=== PATIENT | male | born 1980 | race Caucasian/White ===

== ENCOUNTER → 2018-08-23 08:44 | Outpatient (CLI) | payer OTHER, SELFPAY ==
[2018-08-01 14:31] VITALS: BMI 29.9
[2018-08-23 09:54] LABS: ALB/GLOB Ratio 1.2 RATIO (0.9-2.4); AST(SGOT) 18 U/L (15-37); Alanine Aminotransfer ALT/SGPT 33 U/L (16-61); Albumin, Serum 3.6 g/dL (3.2-5.0); Alkaline Phosphatase 78 U/L (45-117); Anion Gap 5 (5-15); BUN 18 mg/dL (7-18); BUN/Creat Ratio 17.5 RATIO (10-20); Calcium,Total 8.5 mg/dL (8.5-10.1); Chloride 107 mmol/L (98-107); Cholesterol 236 mg/dL (200); Creatinine, Serum 1.03 mg/dL (0.70-1.30); EST Glomerular Filtration Rate 86 mL/min (>60); Est Glom Filt Rate - Afr Amer 104 mL/min (>60); Glucose 90 mg/dL (74-106); High Density Lipoprotein 51 mg/dL; Protein, Total 6.6 g/dL (6.4-8.2); Sodium Level 142 mmol/L (136-145); Triglycerides 137 mg/dL; Very Low Density Lipoprotein 27 mg/dL (5-40)
== END ==
PROVIDERS: Family Provider Family Medicine; PCP Family Medicine; Referring Provider Family Medicine; Visit Provider Family Medicine
DX: E78.5 Hyperlipidemia, unspecified (principal)
CPT/HCPCS: 36415; 80053; 80061

== ENCOUNTER → 2019-12-09 08:49 | Outpatient (CLI) | payer OTHER, SELFPAY ==
[2019-12-09 08:26] VITALS: BMI 29.9
[2019-12-09 12:46] LABS: Anion Gap 2 (5-15); BUN 15 mg/dL (7-18); BUN/Creat Ratio 16.2 RATIO (10-20); Calcium,Total 8.8 mg/dL (8.5-10.1); Chloride 104 mmol/L (98-107); Cholesterol 255 mg/dL (200); Creatinine, Serum 0.93 mg/dL (0.70-1.30); EST Glomerular Filtration Rate 97 mL/min (>60); Est Glom Filt Rate - Afr Amer 117 mL/min (>60); Glucose 86 mg/dL (74-106); High Density Lipoprotein 52 mg/dL; Potassium 3.9 mmol/L (3.5-5.1); Sodium Level 137 mmol/L (136-145); Triglycerides 109 mg/dL; Very Low Density Lipoprotein 22 mg/dL (5-40)
== END ==
PROVIDERS: PCP Family Medicine; Referring Provider Family Medicine; Visit Provider Family Medicine
DX: Z00.00 Encounter for general adult medical examination without abnormal findings (principal); Z80.42 Family history of malignant neoplasm of prostate
CPT/HCPCS: 36415; 80048; 80061; 84153

== ENCOUNTER → 2020-12-15 10:52 | Outpatient (CLI) | payer OTHER, SELFPAY ==
[2020-12-15 12:28] LABS: Anion Gap 5 (5-15); BUN 17 mg/dL (7-18); BUN/Creat Ratio 15.6 RATIO (10-20); Calcium,Total 9.2 mg/dL (8.5-10.1); Chloride 102 mmol/L (98-107); Cholesterol 290 mg/dL (200); Creatinine, Serum 1.09 mg/dL (0.70-1.30); EST Glomerular Filtration Rate 80 mL/min (>60); Est Glom Filt Rate - Afr Amer 97 mL/min (>60); Glucose 88 mg/dL (74-106); High Density Lipoprotein 57 mg/dL; Potassium 4.3 mmol/L (3.5-5.1); Sodium Level 139 mmol/L (136-145); Triglycerides 137 mg/dL; Very Low Density Lipoprotein 27 mg/dL (5-40)
== END ==
PROVIDERS: PCP Family Medicine; Referring Provider Family Medicine; Visit Provider Family Medicine
DX: Z00.00 Encounter for general adult medical examination without abnormal findings (principal)
CPT/HCPCS: 36415; 80048; 80061

== ENCOUNTER → 2021-02-18 09:12 | Outpatient (CLI) | payer OTHER, SELFPAY | PROVIDERS: PCP Family Medicine; Referring Provider Nurse Practitioner Family; Visit Provider Nurse Practitioner Family | DX: I49.9 Cardiac arrhythmia, unspecified (principal) | CPT/HCPCS: 93225; 93226 ==

== ENCOUNTER → 2021-09-09 | Outpatient (CLI) | payer OTHER, SELFPAY ==
[2021-09-09 10:08] LABS: Absolute Lymphocyte Count 1.31 X10^3/uL (0.83-4.51); Absolute Neutrophil Count 2.7 X10^3/uL (2.0-7.7); Basophil# 0.06 X10^3/uL; Basophil% 1.2 % (0-1); Eosinophil# 0.18 X10^3/uL; Eosinophils% 3.7 % (0-5); Hematocrit 44.8 % (40-54); Hemoglobin 15.7 g/dL (13.0-16.5); Lymphocyte # 1.31 X10^3/ul (0.83-4.51); Lymphocyte % 27.2 % (19-41); Mean Corpuscular Hgb 31.2 pg (27.0-32.0); Mean Corpuscular Volume 88.9 fL (80-94); Mean Platelet Vol. 8.5 fl (6.2-12.0); Monocyte# 0.55 X10^3/uL; Monocyte% 11.4 % (0-10); NRBC Flagged by Analyzer 0 % (0-5); Neutrophil # 2.69 X10^3/uL (2.7-7.7); Neutrophil % 56.1 % (47-70); Platelet Count 211 K/mm3 (150-450); RBC Distribution Width CV 12.4 % (11.6-14.6); RBC Distribution Width SD 39.9 fl (35.1-43.9); Red Blood Count 5.04 M/mm3 (4.6-6.2); White Blood Count 4.8 K/mm3 (4.4-11.0)
[2021-09-09 10:49] LABS: ALB/GLOB Ratio 1.3 RATIO (0.9-2.4); AST(SGOT) 22 U/L (15-37); Alanine Aminotransfer ALT/SGPT 41 U/L (16-61); Albumin, Serum 3.9 g/dL (3.2-5.0); Alkaline Phosphatase 72 U/L (45-117); Anion Gap 5 (5-15); BUN 15 mg/dL (7-18); BUN/Creat Ratio 14.9 RATIO (10-20); Calcium,Total 8.9 mg/dL (8.5-10.1); Chloride 106 mmol/L (98-107); Creatinine, Serum 1.01 mg/dL (0.70-1.30); EST Glomerular Filtration Rate 87 mL/min (>60); Est Glom Filt Rate - Afr Amer 105 mL/min (>60); Globulin 2.9 g/dL (2.2-4.2); Glucose 83 mg/dL (74-106); Protein, Total 6.8 g/dL (6.4-8.2); Sodium Level 140 mmol/L (136-145); Thyroid Stim Hormone (TSH) 3.91 uIU/mL (0.358-3.74)
[2021-09-10 09:02] LABS: Vitamin B12 322 pg/mL (211-911); Vitamin D,25 Hydroxy 28.8 ng/mL
[2021-09-12 08:07] LABS: Cholesterol 183 mg/dL (200); High Density Lipoprotein 51 mg/dL; Triglycerides 113 mg/dL; Very Low Density Lipoprotein 23 mg/dL (5-40)
== END | disposition home or self-care (01) ==
LOC: MTLAB 07:36
PROVIDERS: PCP Family Medicine; Referring Provider Family Medicine; Visit Provider Family Medicine
DX: Z00.00 Encounter for general adult medical examination without abnormal findings (principal); R53.83 Other fatigue
CPT/HCPCS: 36415; 80053; 80061; 82306; 82607; 84443; 85025

== ENCOUNTER → 2021-09-16 | Outpatient (CLI) | payer OTHER, SELFPAY ==
--- NOTE | 2021-09-16 11:25 | US_ITS ---
STUDY: SUPERFICIAL ULTRASOUND - LEFT FOREHEAD. REASON FOR EXAM: Male, 41 years old. GROWTH L FOREHEAD TECHNIQUE: A superficial ultrasound was performed with real-time and static esteves-scale imaging. COMPARISON: None. FINDINGS: The palpable abnormality corresponds to a 4 mm x 4 mm x 2 mm partially calcified nodule within the scalp overlying the left frontal bone. Posterior acoustical shadowing. This may represent an osteoma. US/Head/Neck Soft Tissue IMPRESSION: 4 mm x 4 mm x 2 mm partially calcified nodule deep in the scalp overlying the left frontal bone suggestive of an osteoma. Electronically Signed: Charlie Recio MD at 13:07 EDT ,
== END | disposition home or self-care (01) ==
LOC: US 11:24
PROVIDERS: PCP Family Medicine; Referring Provider Family Medicine; Visit Provider Family Medicine
DX: R22.0 Localized swelling, mass and lump, head (principal)
CPT/HCPCS: 76536

== ENCOUNTER → 2021-11-04 | Outpatient (CLI) | payer OTHER, SELFPAY ==
--- NOTE | 2021-11-04 13:47 | ART_ITS ---
Reason For Study: Brachial plexus disorder Procedure A bilateral upper extremity continuous wave Doppler with analog waveform analysis and segmental pressures. Thoracic outlet maneuvers performed bilaterally. Left Segmental Pressures Left brachial= 127mmHg. Left radial= 142mmHg. Left ulnar= 152mmHg. Left digit = 150 mmHg. The left radial waveforms are triphasic. The left ulnar waveforms are triphasic. Right Segmental Pressures Right brachial= 125mmHg. Right radial= 133mmHg. Right ulnar= 135mmHg. Right digit = 126 mmHg. The right radial waveforms are triphasic. The right ulnar waveforms are triphasic. Indices The right wrist-brachial index is 1.06. The right digital-brachial index is 0.99. The left wrist- brachial index is 1.20. The left digital-brachial index is 1.18. VL/Upper Extremity Arterial Study Interpretation Summary Right wrist-brachial index 1.06 at rest, normal. PVR/Doppler and digit waveform s normal at rest. Waveforms significantly diminished on right with maneuvers consistent with thor acic outlet syndrome Left wrist-brachial index 1.2 at rest, normal. PVR/Doppler and digit waveforms normal at rest. Waveforms significantly diminished on left with maneuvers consistent with thora cic outlet syndrome Ordering Physician: Walter Bell Referring Physician: Viraj Perdue Performed By: Christine Lloyd RVT
== END | disposition home or self-care (01) ==
PROVIDERS: PCP Family Medicine; Referring Provider Surgery Trauma Surgery; Visit Provider Surgery Trauma Surgery
DX: G54.0 Brachial plexus disorders (principal)
CPT/HCPCS: 93923

== ENCOUNTER 2021-12-27 11:00 | Outpatient (RCR) | payer OTHER, SELFPAY ==
--- NOTE | 2021-12-21 07:58 | HP.PTEVAL ---
Patient's Visit Information THALIA ANGEL is a 41 year old M referred to Physical Therapy by Dr. Sofia Quiros MD with a diagnosis of TOS. Date of Evaluation: 12/20/21 Physical Therapist: José Luis Dumont, PT, ATC - Visit Plan Frequency: 1-2x /Week Duration: 3 Weeks Plan: L UE stretching (scalenes and pec minor), DTR, 1st rib mobs, and HEP - Subjective Pt reports he has had L UE pain for the past 6-8 months, but notes the pain has worsened over the past 2-3 months. Pt reports the pain is located on the L UE and will radiate down his L UE. Pt notes he has difficulty with sleep at nights secondary to pain. Pt notes he has had some diagnostic tests at this time, but is awaiting to get his CT scan. Pt reports he is limited with certain activity like throwing the ball with his son occasion secondary to pain. Pt is R hand dominant. Pt notes when he throws the ball, he will notice the same pain on the R UE. Pt reports he has neck pain at this time. Pt reports his fingers feel ice cold at night. Pt reports his major goal is to avoid surgery at this time. 2/10 pain at rest, 7/10 pain at worst (when he sleeps at night). - Pain B UE Pain Intensity (Out of 10): 2 Pain Intensity Range: 7 - Objective Palpation: Mild muscle guarding in C/S. No obvious deformity. Neuro: B UE sensation is WNL to light touch. B bicipital reflex= 1/3. ROM: B UE's are WFL when compared bilaterally. MMT: B UE's 5/5 throughout. Repeated movements: RFIS and JAMES NE. Special tests: Pos Nick sign - Balance/Special Test Scores Oswestry Low Back Score: 5 - Goals Goal 1:: Decrease L UE pain x 50% to aid with sleep Goal Time Frame: 2-4 Weeks Goal 2:: Decrease L UE tingling and numbness x 50% to aid with IADL's Goal Time Frame: 2-4 Weeks Goal 3:: I with HEP Goal Time Frame: 2-4 Weeks - Rehabilitation Potential Physical Therapy Diagnosis: Pt has L UE pain and radicular sx's secondary to TOS Rehabilitation Potential: Fair - Anticipated Interventions Patient/Client Instruction: Educate patient on: Condition, Plan of Care For the Purpose of:: To improve self management Therapeutic Exercise to Include: Flexibilty training, Active ROM For the Purpose of:: To decrease pain, To improve muscle performance and motor function Manual Therapy Techniques to Include: Soft tissue mobilization For the Purpose of:: To decrease pain, To improve muscle performance and motor function Thank you for the opportunity to evaluate your patient. For Medicare and Medicare HMO plans, please review the plan of care and approve it. It will need to be FAXED BACK to us at [phone] for Medicare purposes. For Medicare only, by signing this I certify the plan of care. Please let me know if there are questions or concerns regarding this plan of care. Physician Signature: Date:
--- NOTE | 2022-06-15 17:27 | HP.PTDCNRP_ITS ---
THALIA ANGEL was seen in my office for initial evaluation on 12/20/21. The following Plan of Care was established for this patient: Initial Frequency: 1-2x /Week Initial Duration: 3 Weeks Patient/Client Instruction: Educate patient on: Condition, Plan of Care For the Purpose of:: To improve self management Therapeutic Exercise to Include: Flexibilty training, Active ROM For the Purpose of:: To decrease pain, To improve muscle performance and motor function Manual Therapy Techniques to Include: Soft tissue mobilization For the Purpose of:: To decrease pain, To improve muscle performance and motor function This patient was last seen in our office . Pertinent comments regarding their Physical therapy will appear below: Pt was treated for 2 PT visits for TOS through the date of 12/27/21. Pt has not returned through todays date and is discontinued at this time. At this point I will be discontinuing this patient from physical therapy. I w ould be happy to see this patient again in the future if found appropriate by the physician. Thank you! José Luis Dumont, PT, ATC Balance/Gait/Functional tests - Balance/Special Test Scores Oswestry Low Back Score: 5
== END 2021-12-27 19:00 | disposition home or self-care (01) ==
LOC: PT 11:00
PROVIDERS: PCP Family Medicine; Referring Provider Surgery Vascular Surgery; Visit Provider Surgery Vascular Surgery
DX: G54.0 Brachial plexus disorders (principal)
CPT/HCPCS: 97110; 97140; 97161

== ENCOUNTER → 2022-07-24 | Outpatient (CLI) | payer OTHER, SELFPAY ==
[2022-07-24 10:49] LABS: Absolute Lymphocyte Count 1.07 X10^3/uL (0.83-4.51); Absolute Neutrophil Count 2.8 X10^3/uL (2.0-7.7); Basophil# 0.03 X10^3/uL; Basophil% 0.6 % (0-1); Eosinophil# 0.16 X10^3/uL; Eosinophils% 3.5 % (0-5); Hematocrit 46.6 % (40-54); Hemoglobin 15.8 g/dL (13.0-16.5); Lymphocyte # 1.07 X10^3/ul (0.83-4.51); Lymphocyte % 23.2 % (19-41); Mean Corp Hgb Conc 33.9 g/dL (32-36); Mean Corpuscular Hgb 30.7 pg (27.0-32.0); Mean Corpuscular Volume 90.5 fL (80-94); Mean Platelet Vol. 8.8 fl (6.2-12.0); Monocyte# 0.51 X10^3/uL; NRBC Flagged by Analyzer 0 % (0-5); Neutrophil # 2.84 X10^3/uL (2.7-7.7); Neutrophil % 61.5 % (47-70); Platelet Count 216 K/mm3 (150-450); RBC Distribution Width CV 12.4 % (11.6-14.6); RBC Distribution Width SD 40.9 fl (35.1-43.9); Red Blood Count 5.15 M/mm3 (4.6-6.2); White Blood Count 4.6 K/mm3 (4.4-11.0)
[2022-07-24 11:09] LABS: ALB/GLOB Ratio 1.2 RATIO (0.9-2.4); AST(SGOT) 17 U/L (15-37); Alanine Aminotransfer ALT/SGPT 35 U/L (16-61); Albumin, Serum 3.9 g/dL (3.2-5.0); Alkaline Phosphatase 73 U/L (45-117); Anion Gap 4 (5-15); BUN 17 mg/dL (7-18); Chloride 106 mmol/L (98-107); Cholesterol 154 mg/dL (200); EST Glomerular Filtration Rate 87 mL/min (>60); Est Glom Filt Rate - Afr Amer 106 mL/min (>60); Globulin 3.2 g/dL (2.2-4.2); Glucose 95 mg/dL (74-106); High Density Lipoprotein 58 mg/dL; PSA,Total - Annual Screen 0.64 ng/mL (0.00-4.00); Potassium 3.9 mmol/L (3.5-5.1); Protein, Total 7.1 g/dL (6.4-8.2); Sodium Level 141 mmol/L (136-145); T4 Free Direct 1.08 ng/dL (0.76-1.46); Thyroid Stim Hormone (TSH) 2.94 uIU/mL (0.358-3.74); Triglycerides 53 mg/dL; Very Low Density Lipoprotein 11 mg/dL (5-40)
== END | disposition home or self-care (01) ==
LOC: LAB.FUTURE 08:33 → BFHLAB 08:34
PROVIDERS: PCP Family Medicine; Referring Provider Family Medicine; Visit Provider Family Medicine
DX: Z00.00 Encounter for general adult medical examination without abnormal findings (principal); R79.89 Other specified abnormal findings of blood chemistry; Z80.42 Family history of malignant neoplasm of prostate
CPT/HCPCS: 36415; 80053; 80061; 84153; 84439; 84443; 85025; G0103

== ENCOUNTER → 2023-05-01 | Outpatient (CLI) | payer OTHER, SELFPAY ==
[2023-05-01 12:21] LABS: Absolute Lymphocyte Count 1.06 X10^3/uL (0.83-4.51); Absolute Neutrophil Count 3.2 X10^3/uL (2.0-7.7); Basophil# 0.05 X10^3/uL; Eosinophil# 0.14 X10^3/uL; Eosinophils% 2.8 % (0-5); Hematocrit 46.7 % (40-54); Lymphocyte # 1.06 X10^3/ul (0.83-4.51); Lymphocyte % 21.4 % (19-41); Mean Corp Hgb Conc 34.3 g/dL (32-36); Mean Corpuscular Hgb 30.1 pg (27.0-32.0); Mean Corpuscular Volume 87.9 fL (80-94); Monocyte# 0.51 X10^3/uL; Monocyte% 10.3 % (0-10); NRBC Flagged by Analyzer 0 % (0-5); Neutrophil # 3.17 X10^3/uL (2.7-7.7); Neutrophil % 64.1 % (47-70); Platelet Count 207 K/mm3 (150-450); RBC Distribution Width SD 38.4 fl (35.1-43.9); Red Blood Count 5.31 M/mm3 (4.6-6.2)
[2023-05-01 12:58] LABS: ALB/GLOB Ratio 1.4 RATIO (0.9-2.4); AST(SGOT) 14 U/L (15-37); Alanine Aminotransfer ALT/SGPT 32 U/L (16-61); Albumin, Serum 4.1 g/dL (3.2-5.0); Alkaline Phosphatase 68 U/L (45-117); Anion Gap 4 (5-15); BUN 18 mg/dL (7-18); BUN/Creat Ratio 15.8 RATIO (10-20); Calcium,Total 9.1 mg/dL (8.5-10.1); Chloride 108 mmol/L (98-107); Cholesterol 156 mg/dL (200); Creatinine, Serum 1.14 mg/dL (0.70-1.30); EST Glomerular Filtration Rate 75 mL/min (>60); Est Glom Filt Rate - Afr Amer 91 mL/min (>60); Globulin 2.9 g/dL (2.2-4.2); Glucose 92 mg/dL (74-106); High Density Lipoprotein 50 mg/dL; PSA,Total - Annual Screen 0.66 ng/mL (0.00-4.00); Potassium 4.1 mmol/L (3.5-5.1); Sodium Level 140 mmol/L (136-145); Triglycerides 78 mg/dL; Very Low Density Lipoprotein 16 mg/dL (5-40)
== END | disposition home or self-care (01) ==
LOC: BFHLAB 08:43
PROVIDERS: PCP Family Medicine; Visit Provider Family Medicine
DX: Z00.00 Encounter for general adult medical examination without abnormal findings (principal); Z12.5 Encounter for screening for malignant neoplasm of prostate
CPT/HCPCS: 36415; 80053; 80061; 84153; 85025; G0103

== ENCOUNTER → 2023-07-19 | Outpatient (CLI) | payer OTHER, SELFPAY | END | disposition home or self-care (01) | PROVIDERS: PCP Family Medicine; Referring Provider Surgery; Visit Provider Surgery | DX: Z01.818 Encounter for other preprocedural examination (principal) | CPT/HCPCS: 87081 ==

== ENCOUNTER → 2023-08-02 | Outpatient (CLI) | payer OTHER, SELFPAY ==
--- NOTE | 2023-08-02 07:44 | CT_ITS ---
STUDY: CT ABDOMEN AND PELVIS WITH CONTRAST REASON FOR EXAM: Male, 43 years old. Hernia RADIATION DOSAGE (If Supplied By Facility): CTDIvol = ( 11.67 ) mGy, DLP = ( 759.35 ) mGycm TECHNIQUE: Oral and amp; IV Readi-CAT and amp; 100mL Isovue-300 was administered. Transaxial images were obtained from the dome of the diaphragm to the symphysis pubis. Multiplanar coronal and sagittal images were reformatted. The protocol utilizes one or more of the following dose reduction techniques: automated exposure control, adjustment of mA and/or kV according to patient size,and/or use of iterative reconstruction technique. COMPARISON: No relevant prior comparison study available FINDINGS: The visualized lung bases are unremarkable. The visualized portions of the heart are within normal limits. Normal liver. Normal gallbladder and extrahepatic biliary system. Normal spleen. Normal pancreas. Normal bilateral adrenal glands. Unremarkable kidneys. Right extrarenal pelvis. No evidence of hydronephrosis. Normal visualized stomach. Normal small intestine. Fecal retention. No evidence of acute diverticulitis. The appendix is visualized and appears normal. Normal abdominal aorta. No retroperitoneal adenopathy. Normal urinary bladder. No pelvic mass. There is a small left-sided inguinal hernia containing adipose tissue. Small umbilical hernia containing fat. The osseous structures are essentially unremarkable. Mild endplate spondylosis at T11-T12. CT/Abdomen/Pelvis WITH Contrast IMPRESSION: 1. Small left inguinal hernia containing fat and small umbilical hernia containing fat. 2. Otherwise unremarkable examination. Electronically Signed: Josué Santo MD at 9:15 EDT ,
== END | disposition home or self-care (01) ==
PROVIDERS: PCP Family Medicine; Referring Provider Surgery; Visit Provider Surgery
DX: R10.32 Left lower quadrant pain (principal); K42.9 Umbilical hernia without obstruction or gangrene
CPT/HCPCS: 74177; Q9967

== ENCOUNTER 2023-09-27 09:48 | Day surgery (SDC) | payer OTHER, SELFPAY ==
[2023-09-27] VITALS (8 sets, daily range): BP systolic 88–123; BP diastolic 57–88; PULSE 52–100; RESP 14–17; TEMP 36.3–37.8; O2SAT 92–98; BMI 25.8
--- NOTE | 2023-09-27 10:03 | PCM.PRE.AN2 ---
ASA Classification* ASA Classification ASA Classification: 2 Assessment & Plan Anesthesia* Anesthesia Assessment Anesthesia Assessment: Discussed sedation and/or anesthesia options, risks, benefits, and alternatives with patient/parents/legal guardian/POA. Questions invited. The patient/parents/legal guardian/POA seems to understand and agrees to proceed with anesthesia plan. Reviewed the physical assessment, medical history, allergy history and patient home medications list prior to surgery/procedure/anesthetic and documented any changes. Performed airway and anesthesia risk assessments. Anesthesia Type Anesthesia Type: General (given versed in AC mild anxiety about procedure) Anesthesia Focused Assessment* Airway Assessment Mouth opens: >3 cm Mallampati Score: II Focused Labs Anesthesia Preop lab: CBC WBC 5.0 K/mm3 (4.4-11.0) 05/01/23 08:44 RBC 5.31 M/mm3 (4.6-6.2) 05/01/23 08:44 Hgb 16.0 g/dL (13.0-16.5) 05/01/23 08:44 Hct 46.7 % (40-54) 05/01/23 08:44 Plt Count 207 K/mm3 (150-450) 05/01/23 08:44 CHEMISTRY Potassium 4.1 mmol/L (3.5-5.1) 05/01/23 08:44 Sodium 140 mmol/L (136-145) 05/01/23 08:44 BUN 18 mg/dL (7-18) 05/01/23 08:44 Creatinine 1.14 mg/dL (0.70-1.30) 05/01/23 08:44 Glucose 92 mg/dL (74-106) 05/01/23 08:44 TSH 2.94 uIU/mL (0.358-3.74) 07/24/22 08:35 COAG Pre-Assessment Diagnosis/Proposed Procedure Planned Operative Procedure(s): (L) Lap Robotic Left Inguinal Hernia w/mesh & umbilical hernia Anesthesia History 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 When Was Last Pacemaker Check QUESTION #4 FULL TEXT: You/Your Family Experience fever (hyperthermia) with Anesthesia Last Oral Intake Last Oral intake: Last Oral Intake NPO since Meds taken in AM with sips of water? Meds patient instructed to take am of surgery PONV PONV - drop board worker: PONV - drop board worker Female No 09/13/23 08:53 HX of Motion Sickness Yes 09/13/23 08:53 HX of N/V After Surgery No 09/13/23 08:53 Non-Smoker Yes 09/13/23 08:53 Duration of Surgery greater Yes 09/13/23 08:53 than 60 minutes Number of Risk Factors 3 09/13/23 08:53 PONV Score Moderate Risk 09/13/23 08:53 Height & Weight Height & Weight: Anesthesia: Height & Weight Height 5 ft 7 in 07/19/23 14:56 Respiratory Assessment Respiratory Assessment - drop board worker: Respiratory Tract Infection Hx - drop board worker Hx Respiratory Tract Infection No 09/13/23 08:53 STOP Sleep Apnea STOP Sleep Apnea - drop board worker: STOP Sleep Apnea - drop board worker Hx Hypertension No 09/13/23 08:53 Hx Sleep Apnea No 09/13/23 08:53 CPAP BIPAP Do you snore loudly (louder No 09/13/23 08:53 than talking or can be heard Do you often feel tired/ No 09/13/23 08:53 fatigued/ sleepy during daytime? Has anyone observed you stop No 09/13/23 08:53 breathing during sleep? STOP Results Negative 09/13/23 08:53 QUESTION #5 FULL TEXT : Do you snore loudly (louder than talking or can be heard through closed doors)? 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 Specify any problems Hx of Preganancy in last 3 N/A 09/13/23 08:53 Months Nurse Filling Out Transfusion [facility] 09/13/23 08:53 & Questions: Date: 09/13/23 09/13/23 08:53 Time: 08:59 09/13/23 08:53 Patient unable to answer at this time (ie. confused, unrespo /Reproduction History /Reproductive History - drop board worker: /Reproductive Hx- drop board worker Hx Now Gestational Age (in weeks): EDC: Hx Hx Para Hx Section SAB Active Medications Active Medications: Current Medications Generic Name Dose Route Start Last Admin Trade Name Freq PRN Reason Stop Dose Admin Cefazolin Sodium 2 gm/ Sodium 110 mls @ 150 mls/hr 09/27/23 11:30 Chloride IV 09/27/23 12:13 PREOP ONE Lactated Ringer's 1,000 mls @ 15 mls/hr 09/27/23 10:00 IV .Q48H ALANNAH PFSH Medical History Wears contact lenses Alcohol use Former smoker History of echocardiogram History of stress test Umbilical hernia Left groin pain Pre-op testing Acute frontal sinusitis, unspecified High cholesterol Home Medications ?Medication ?Instructions ?Recorded ?Last Taken ?Type rosuvastatin 10 mg tablet (Crestor) 10 mg PO DAILY #90 tabs 05/18/21 Unknown Rx fluticasone propionate 50 1 spray intranasal BID PRN allergy 05/25/22 Unknown History mcg/actuation nasal symptoms spray,suspension Allergy/AdvReac Type Severity Reaction Status Date / Time No Known Allergies Allergy Verified 07/19/23 14:57 Family History Grandmother Heart disease Hypertension Mother CAD (coronary artery disease) Surgical History S/P LASIK surgery of both eyes Social History Smoking Status: Former smoker alcohol intake: current alcohol intake frequency: a few times a month frequency: 3-4 times per week Review of Systems (Anesthesia) ROS Narrative System reviewed and no additional complaints, except as documented.
[2023-09-27] MEDS: Lactated Ringers 1,000 ML 15 ML IV (10:14)
--- NOTE | 2023-09-27 11:30 | HERN_PTH ---
PATIENT: THALIA ANGEL [place] [facility] [place][id number] AGE/SX: 43/M ROOM: RE09/27/[address]: Dr. Walker Hartley MD : 1980 BED: DIS: 09/27/2023 SPEC #: [id number] RECD: 09/28/23 09:28 STATUS: DARCI TAINA #: [id number] ION: 09/27/23 11:[address]: Walker Hartley DEPT: SURGICAL PATHOLOGY RECD BY: Chilo Gómez ENTERED: 09/28/23 10:18 SP TYPE: Hernia OTHR DR: Dr. Viraj Perdue, DO Tissues: HERNIA Procedures: Surgery Specimen Level II HEADER OPERATION: Laparoscopic robotic left inguinal hernia with mesh and umbilical hernia PRE-OP DIAGNOSIS: Left groin pain, umbilical hernia TISSUE SUBMITTED: Medial umbilical fat appendage MICROSCOPIC DIAGNOSIS Medial umbilical fat appendage, excision: A piece of benign adipose tissue. KORY/ 10/01/2023 MICROSCOPIC DESCRIPTION Slides are reviewed. GROSS DESCRIPTION Received in fixative is one container labeled with the patient's name and designated Medial umbilical fat appendage. The specimen consists of a piece of adipose tissue measuring 4.0 x 1.5 x 1.0cm. Sections reveal yellow adipose cut surfaces without area of hemorrhage, necrosis or cystic degeneration. Rubber Thread Spooler sections are submitted in one cassette. KORY/ 09/28/2023 TC:4 CPT:11872
--- NOTE | 2023-09-27 11:34 | HP.PCM_ITS ---
History and Physical Date of Admission: 09/27/23 Date of Service: 07/19/23 MR#: [id number] Acct: [id number] Name: THALIA ANGEL Rep #: [id number] : 1980 Provider: Dr. Walker Hartley MD Age/Sex: 43/M Location: [facility] Status: Signed Intake Vital Signs 05/26/2311:29 07/18/2413:56 Height 5 ft 7 in 5 ft 7 in Weight: 187 lb BMI 29.2 BP 117/77 Blood Pressure Location Rt brachial Position Sitting Respiration 16 Intake Visit Reasons: INGUINAL HERNIA Chief Complaint: left inguinal hernia Epic Director Required: No Is patient in pain?: Yes (left groin) Allergies No Known Allergies Allergy (Verified 07/19/23 14:57) Medications ?Medication ?Instructions ?Recorded ?Confirmed ?Type rosuvastatin 10 mg tablet (Crestor) 10 mg PO DAILY #90 tabs 05/18/21 07/19/23 Rx fluticasone propionate 50 1 spray intranasal BID 05/25/22 07/19/23 History mcg/actuation nasal spray,suspension pseudoephedrine-ibuprofen 30 cap PO 05/25/22 07/19/23 History mg-200 mg capsule (Advil Cold and Sinus) PFSH Medical History (Updated 07/19/23 @ 17:[address] Walker Hartley MD) Umbilical hernia Left groin pain Pre-op testing Acute frontal sinusitis, unspecified High cholesterol Surgical History (Updated 07/19/23 @ 14:55 by Mary Ellen Salguero) S/P LASIK surgery of both eyes Family History (Updated 07/19/23 @ 14:56 by Mary Ellen Salguero) Grandmother Heart disease HypertensionMother CAD (coronary artery disease) Social History Smoking Status: Former smoker alcohol intake: current alcohol intake frequency: a few times a month frequency: 3-4 times per week HPI HPI HPI: Patient is a 43-year-old male who presents for complaint of new left-sided discomfort and bulging. This finding was first noticed by patient 3 weeks to a month ago. Patient is not able to recall how this occurred. He does share that the bulging was appreciated by Dr. Perdue upon his exam. 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 Beyond this he denies any negative effect to his bowel habits but does describe a burning sensation. Beyond the hernia he has consider the possibility of any inflamed lymph node. Patient has a remote personal history of smoking (greater than 20 years ago). Patient has no personal history of recurrent cutaneous infections including staph. Pertinent surgical history includes: None Exam Const General: cooperative and anxious Orientation: alert, awake and oriented x3 Resp Effort & Inspection: normal respiratory effort GI Other: Small umbilical hernia defect visible and palpable. This contains a small am ount of fatty tissue and is nontender. Other: Bilaterally descended testicles. No apparent defect on the right. Apparent small indirect defect on the left. Assessment and Plan Assessment and Plan (1) Left groin pain: Status: Acute Comment: This is a 43-year-old male with probable small indirect inguinal hernia that is causing near daily discomfort and bulging. I discussed operative repair and while patient is interested in undergoing operative repair he would like to hold off due to some present engagements and concerns about his activity restrictions. I shared with him the results of the CT hernia study which validates this as an approach, but also provided red flag warning signs. I suggested that in the interim we could consider a CT exam to assess the size of this hernia as well as assess the right side for presence of any smaller defects on that side for preoperative planning. Patient is receptive. Plan: ? CT scan of the abdomen pelvis to assess for presence/size of left inguinal hernia and any possible hernia on the right ? Tentatively plan for robot-assisted inguinal hernia repair with mesh in the future (await patient's word on timing) (2) Umbilical hernia: Status: Acute Comment: Patient with 1 cm umbilical hernia defect that is asymptomatic. This was an incidental finding during today's exam. I discussed possibly performing a primary closure of this defect at the time of his surgery versus ongoing watchful waiting. Patient is uncertain which direction he would like to go at this time and will talk things over with his . Plan: Await patient's decision on possible repair of umbilical hernia I have examined the patient and the H&P has been reviewed. There are no clinical changes since date of exam. Both the procedure and post procedure expectations?including activity restrictions were reviewed with patient and his family. All questions were answered to her satisfaction. Plan to proceed to the operating room for robot-assisted left inguinal and umbilical hernia repairs with mesh.
--- NOTE | 2023-09-27 11:34 | OP.PCM_ITS ---
Report of Operation Date of Procedure: 09/27/23 Pre-Operative Diagnosis: 1. Left inguinal hernia 2. Umbilical hernia Post-Operative Diagnosis: 1. Left indirect inguinal hernia with small cord lipoma associated 2. Umbilical hernia containing fat Surgery/Procedure Performed:: 1. Robot-assisted transabdominal preperitoneal inguinal hernia repair with mesh 2. Robot-assisted transabdominal preperitoneal umbilical hernia repair with mesh Surgeon: Walker Hartley network operations lead: Odalys Bhakta Type of Anesthesia: General/Supplemental Anesthesiologist: Aneudy Krishnan Specimen's removed: left medial umbilical fat appendage Estimated Blood Loss (mL): 25 Description of Procedure: After appropriate identification in the preoperative holding area the patient was brought to the operating room where he was positioned supine on the operating table. A bump was placed under his left hip to facilitate the umbilical hernia repair anticipated with this procedure. Preoperative antibiotics were completed and the patient was administered a general anesthetic. Patient's abdomen was then prepped and draped in usual sterile fashion. Formal timeout followed to confirm patient and procedure. Procedure was begun with an optical entry facilitated by Veress insufflation at Whalen's point. Once pneumoperitoneum reached a set point pressure of 15 mmHg the Veress needle was withdrawn and an optical entry was made with a robotic trocar through that incision site. Laparoscopic visualization confirmed no inadvertent injury to the viscera below and 2 additional ports were placed in the right upper quadrant and paramedian positions, respectively, after instillation of local anesthetic. Patient was positioned in slight Trendelenburg and I performed a local block of the left ilioinguinal nerve using 7 mL local anesthetic under laparoscopic visualization. The robot was docked in standard fashion. In this positioning I could visualize a indirect abdominal wall defect. Robotically, a peritoneal flap was created on the left extending from the medial umbilical ligament to the level of the ASIS (external) and was bluntly dissected to expose the medial parietal compartment and lateral visceral compartments. Medially as I attempted to enter the space of Retzius I encountered bleeding from an unnamed vessel against the posterior aspect of the rectus muscle and in proximity to the inferior epigastric. Not being able to see well in this undeveloped plane with bleeding I chose to pack this area with a Ray-Manjeet gauze and moved laterally where I developed the visceral compartment were completely around patient's hernia sac as it entered the external ring. There was ultimately not a large volume of bleeding, however given the small space, this did compromise the visibility. The hernia sac was identified and from the cord structures deeply with selective use of monopolar energy. This required tracking all the way down to the left testicle but I did identify the edge of the hernia sac and stripped it free of the underlying cord structures. A small sized cord lipoma was identified laterally and removed from the transversalis sling with monopolar energy. Beyond this, I then developed the space of Retzius which was now hemostatic and carefully divided any intervening small vasculature so as not to incur further bleeding. In order to facilitate this exposure I did remove with cautery a small fatty appendage of the left medial umbilical ligament that otherwise continued to obscure my view. Within this pocket there was no evidence of either a direct or femoral defect. I then made sure I was clearly dissected at least 2 cm to the contralateral side. The peritoneal flap was inspected to ensure that cord was appropriately parietalized and there was clear identification of both the spermatic vessels as well as the vas deferens medially. The peritoneal flap was inspected and there was no pulling of the cord structures or the viscera deeply over the psoas using the pull test. Once satisfied, a Bard 3D max, size large, mid mesh was placed into the abdomen along with suture. It was positioned within the preperitoneal pocket so that there was good medial and inferior overlap. It was then tacked to the admuniculum of the linea alba just superior to the pubic tubercle, superiorly to the posterior rectus, and laterally in a partial-thickness bite of the abdominal wall using a 3-0 Vicryl suture. The peritoneal flap was then closed with a running 3-0 V-Loc suture taking care to conceal the barbs of the suture beneath the peritoneum. Once the flap closure was complete, I undertook repair of peritoneal defect with 3-0 Vicryl. With the peritoneal defects closed, sutures were systematically removed from the peritoneum. I then scrubbed back into the case and undocked the robot. Two additional 8 mm robotic trocars were placed under direct laparoscopic vision along the abdominal wall laterally taking care to avoid the bony prominences of the costal margin and the ASIS. A transversus abdominis plane block was created with 60 mL of a solution of bupivacaine, Exparel rel, and injectable saline under laparoscopic vision as these ports were placed. The robot was then brought in and docked in standard fashion laterally. Robotically a peritoneal flap was raised approximately 2 cm medial from my trocars and carried this away towards the contralateral abdominal wall. Great care was taken to lower the peritoneum off of the posterior rectus sheath and avoid any rents in the peritoneal flap. Perforating vessels were sealed with bipolar energy to maintain hemostasis as this flap dissection proceeded. I then addressed the hernia directly by opening the scar tissue about the hernia sac and carefully applying manual traction downward until the hernia was fully reduced of a fatty plug. The flap was then further dissected laterally until it appeared we had adequate width. The hernia defect was measured at 1.5 cm in diameter. This defect was closed with a #1 stratafix suture by running the fascial defect closed and then running the suture back upon itself. Next a 6.4 cm round Ventralex mesh was selected for backing the hernia. The tails of this mesh were cut and a 3 oh V-Loc suture was inserted through the center point on the mesh. This combination was introduced into the peritoneum and the 3-0 V-Loc suture was used to chandelier the mesh. The same V-Loc suture was then used to approximate the mesh against the unders javi of the abdominal wall by running the circumference continuously. A second V-Loc suture was required to complete this circumference. Lastly a third 3 oh V-Loc suture was used to close the peritoneum over the mesh and, notably, there were no breaks in this peritoneal lining. The robot was then undocked and the trocars were removed. The port sites were closed with interrupted 4-0 Monocryl in subcuticular fashion. Steri-Strips and OpSite dressings were applied. Patient was transferred to PACU for ongoing care. Grafts/Implants Used: 3Dmax Lot: [id number] ref: [id number], Ventralex:Lot [id number], ref:[id number] Complications None Admit VTE Documentation VTE Mechan Device Prophylaxis: SCD's
[2023-09-27] MEDS: Cefazolin 2 GM in 0.9% Normal Saline (100mL Bag) 100 ML IV (11:57)
[2023-09-27] MEDS: Bupiv/Epi 0.25% 30 ML Vial (12:16)
[2023-09-27] MEDS: 0.9% Normal Saline (Pres. free 10 ML Vial (14:30)
[2023-09-27] MEDS: BUPIVACAINE LIPOSOME/PF 20 ML VIAL OPERA.SITE (14:30)
[2023-09-27] MEDS: Bupivacaine Mpf 0.5% 30 ML VIAL (14:30)
--- NOTE | 2023-09-27 16:25 | EX.PCM.DISCH ---
Discharge Instructions Diet Discharge Diet: No restrictions Activity Discharge Activity: May Not Drive (While taking narcotic pain medication) and May Shower May shower in (days): 2 Ice area for (Minutes): 20 Lifting Restrictions: No lifting greater than 10 pounds for the next 5 weeks Dressing / Incision Call your doctor if your incision/area has: Continuous Slow Oozing, Increased Pain/ Swelling, Increased Redness, Foul Smelling Discharge and Swelling at the incision site Call your doctor if you observe: Fever of 101 or Higher, Inability to urinate and Inability to have a bowel movement Change Dressing in: 2 days (Please leave Steri-Strips intact until they fall off spontaneously or are taken off at your follow-up visit) Remove Dressing in: 2 days Cleanse incision/area with: Soap & Water and Keep Dressing Clean & Dry Follow Up Care Please Follow Up With: Walker Hartley MD When: 1 week postop Test Results: Test results from this visit will be discussed in further detail at your follow-up appointment, if applicable. Discharge Plan Admission Primary Reason for Your Visit: Repair of left inguinal and umbilical hernias Attending Provider: Walker Hartley Primary Care Provider: Viraj Perdue Instructions Print Language: German Discharge Orders/Prescriptions Prescriptions: New oxycodone 5 mg tablet 5 mg PO Q6H PRN (Reason: pain) 3 Days Qty: 14 0RF Continued fluticasone propionate 50 mcg/actuation spray,suspension 1 spray intranasal BID PRN (Reason: allergy symptoms) Rx Instructions: administer into each nostril rosuvastatin [Crestor] 10 mg tablet 10 mg PO DAILY Qty: 90 3RF Patient Comments: HASNT TAKEN FOR THE LAST SEVERAL WEEKS Referrals / Follow Up: Viraj Perdue DO [Primary Care Provider] - Disposition Disposition (needs filled in before D/C Order can be placed): Home, Self Care
--- NOTE | 2023-09-27 16:37 | PCM.POST.ANE ---
Anesthesia: Postop Eval I Current Vital Signs Temperature: 100 F Pulse Rate: 100 Blood Pressure: 114/75 Respiratory Rate: 16 Pulse Ox: 92 Oxygen Delivery Method: Room Air Assessment Airway patent: Yes Spontaneous unlabored respirations: Yes Mental status: Awake and Calm nausea: No Vomiting: No Anesthesia Complication: No Fluid Hydration Crystalloid volume administer (ml): 1,500 Total IV fluid infused: 1,500 Progress Note Anesthesia document: Postop Eval 1 completed: Yes
--- NOTE | 2023-09-28 07:36 | POSTOPAN2_ITS ---
Anesthesia Postop Eval I Sum Postop Eval Completion status Anesthesia document: Postop Eval 1 completed: Yes Anesthesia Postop Eval I Summary Anesthesia Postop Eval I Summary: Anesthesia Postop Eval I: Assessment Summary Airway patent Yes 09/27/23 16:38 SUPERINTENDENT REFUSE DISPOSAL.MDOT Spontaneous unlabored Yes 09/27/23 16:38 SUPERINTENDENT REFUSE DISPOSAL.MDOT respirations Mental status Awake,Calm 09/27/23 16:38 SUPERINTENDENT REFUSE DISPOSAL.MDOT nausea No 09/27/23 16:38 SUPERINTENDENT REFUSE DISPOSAL.MDOT Vomiting No 09/27/23 16:38 SUPERINTENDENT REFUSE DISPOSAL.MDOT Anesthesia Postop Eval I: Fluid Summary Crystalloid volume administer 1,500 09/27/23 16:38 SUPERINTENDENT REFUSE DISPOSAL.MDOT (ml) Colloids volume administered ( ml) Blood Product volume administered (ml) Total IV fluid infused 1,500 09/27/23 16:38 SUPERINTENDENT REFUSE DISPOSAL.MDOT Anesthesia Postop Eval I: Summary Notes Anesthesia Complication No 09/27/23 16:38 SUPERINTENDENT REFUSE DISPOSAL.MDOT Anesthesia Complication Comment: Post-operative progress note Anesthesia: Postop Eval II Evaluation Mental status: Awake Pain Level: 4 nausea: No Vomiting: No Complications Anesthesia Complication: No
--- NOTE | 2023-09-28 07:36 | PCM.POSTANE2 ---
Anesthesia Postop Eval I Sum Postop Eval Completion status Anesthesia document: Postop Eval 1 completed: Yes Anesthesia Postop Eval I Summary Anesthesia Postop Eval I Summary: Anesthesia Postop Eval I: Assessment Summary Airway patent Yes 09/27/23 16:38 MANAGER [email or web address].MDOT Spontaneous unlabored Yes 09/27/23 16:38 MANAGER SUBWAY.MDOT respirations Mental status Awake,Calm 09/27/23 16:38 MANAGER SUBWAY.MDOT nausea No 09/27/23 16:38 MANAGER SUBWAY.MDOT Vomiting No 09/27/23 16:38 MANAGER SUBWAY.MDOT Anesthesia Postop Eval I: Fluid Summary Crystalloid volume administer 1,500 09/27/23 16:38 MANAGER SUBWAY.MDOT (ml) Colloids volume administered ( ml) Blood Product volume administered (ml) Total IV fluid infused 1,500 09/27/23 16:38 MANAGER SUBWAY.MDOT Anesthesia Postop Eval I: Summary Notes Anesthesia Complication No 09/27/23 16:38 MANAGER SUBWAY.MDOT Anesthesia Complication Comment: Post-operative progress note Anesthesia: Postop Eval II Evaluation Mental status: Awake Pain Level: 4 nausea: No Vomiting: No Complications Anesthesia Complication: No
== END 2023-09-27 18:14 | disposition home or self-care (01) ==
LOC: SDC 09:48 → AC 09:50
PROVIDERS: PCP Family Medicine; Referring Provider Surgery; Visit Provider Surgery
PROC: 0YQ64ZZ Repair Left Inguinal Region, Percutaneous Endoscopic Approach (ICD-10-PCS; CPT 49650; principal; 2023-09-27 11:10)
DX: K40.90 Unilateral inguinal hernia, without obstruction or gangrene, not specified as recurrent (principal); K42.9 Umbilical hernia without obstruction or gangrene; E78.00 Pure hypercholesterolemia, unspecified; Z79.899 Other long term (current) drug therapy; Z87.891 Personal history of nicotine dependence
CPT/HCPCS: 49650; 49591; S2900; 00840; 88302; C1781; J7120; J2405; J3490

== ENCOUNTER → 2024-05-08 | Outpatient (CLI) | payer OTHER, SELFPAY ==
[2024-05-08 14:40] LABS: Absolute Lymphocyte Count 1.18 X10^3/uL (0.83-4.51); Absolute Neutrophil Count 3.1 X10^3/uL (2.0-7.7); Basophil# 0.05 X10^3/uL; Eosinophil# 0.16 X10^3/uL; Eosinophils% 3.2 % (0-5); Hematocrit 45.8 % (40-54); Hemoglobin 16.2 g/dL (13.0-16.5); Lymphocyte # 1.18 X10^3/ul (0.83-4.51); Lymphocyte % 23.9 % (19-41); Mean Corp Hgb Conc 35.4 g/dL (32-36); Mean Corpuscular Hgb 30.2 pg (27.0-32.0); Mean Corpuscular Volume 85.3 fL (80-94); Mean Platelet Vol. 8.3 fl (6.2-12.0); Monocyte# 0.46 X10^3/uL; Monocyte% 9.3 % (0-10); NRBC Flagged by Analyzer 0 % (0-5); Neutrophil # 3.08 X10^3/uL (2.7-7.7); Neutrophil % 62.4 % (47-70); Platelet Count 218 K/mm3 (150-450); RBC Distribution Width CV 12.2 % (11.6-14.6); RBC Distribution Width SD 37.6 fl (35.1-43.9); Red Blood Count 5.37 M/mm3 (4.6-6.2); White Blood Count 4.9 K/mm3 (4.4-11.0)
[2024-05-08 14:58] LABS: ALB/GLOB Ratio 1.8 RATIO (0.9-2.4); AST(SGOT) 22 U/L (<=37); Alanine Aminotransfer ALT/SGPT 18 U/L (<=46); Albumin, Serum 4.5 g/dL (3.5-5.0); Alkaline Phosphatase 79 U/L (40-129); Anion Gap 11 (5-15); BUN 12 mg/dL (4-19); BUN/Creat Ratio 11.2 RATIO (10-20); Calcium,Total 9.5 mg/dL (7.6-11.0); Carbon Dioxide 26.9 mmol/L (21.0-32.0); Chloride 101 mmol/L (98-108); Cholesterol 267 mg/dL (<=200); Creatinine, Serum 1.11 mg/dL (0.70-1.20); EST Glomerular Filtration Rate 84 (>60); Globulin 2.5 g/dL (2.2-4.2); Glucose 94 mg/dL (70-99); High Density Lipoprotein 55 mg/dL; Low Density Lipoprotein Calc. 195 mg/dL; PSA,Total - Annual Screen 0.76 ng/mL (0.02-4.00); Potassium 4.2 mmol/L (3.3-5.1); Sodium Level 138 mmol/L (133-145); Total Bilirubin 0.58 mg/dL (0.00-1.30); Triglycerides 89 mg/dL; Very Low Density Lipoprotein 18 mg/dL (5-40); cholesterol:hdl ratio screen 4.89
== END | disposition home or self-care (01) ==
LOC: LAB 12:55
PROVIDERS: PCP Family Medicine; Referring Provider Family Medicine; Visit Provider Family Medicine
DX: Z00.00 Encounter for general adult medical examination without abnormal findings (principal); Z12.5 Encounter for screening for malignant neoplasm of prostate
CPT/HCPCS: 36415; 80053; 80061; 84153; 85025; G0103

== ENCOUNTER → 2024-05-12 | Outpatient (CLI) | payer OTHER, SELFPAY ==
[2024-05-12 17:13] LABS: Vitamin B12 762 pg/mL (180-914); Vitamin D,25 Hydroxy 34.4 ng/mL (30-100)
== END | disposition home or self-care (01) ==
LOC: BFHLAB 09:48
PROVIDERS: PCP Family Medicine; Referring Provider Family Medicine; Visit Provider Family Medicine
DX: R53.83 Other fatigue (principal)
CPT/HCPCS: 36415; 82306; 82607; 84443